=== PATIENT | female | born 1960 | race African-American/Black ===

== ENCOUNTER → 2020-02-20 | Outpatient (CLI) | payer OTHER | LOC: BC 12-17 09:42 → ULTRA 09:57 → BC 11:10 | PROVIDERS: ATTEND Family Medicine | DX: Z12.31 Encounter for screening mammogram for malignant neoplasm of breast (principal); N63.20 Unspecified lump in the left breast, unspecified quadrant ==

== ENCOUNTER → 2020-06-04 | Outpatient (CLI) | payer OTHER | LOC: BC 09:31 | PROVIDERS: ATTEND Family Medicine | DX: R92.2 Inconclusive mammogram (principal) ==

== ENCOUNTER → 2020-11-05 | Outpatient (CLI) | payer OTHER | LOC: ULTRA 12:37 | PROVIDERS: ATTEND Nurse Practitioner | DX: E04.1 Nontoxic single thyroid nodule (principal); E11.9 Type 2 diabetes mellitus without complications ==

== ENCOUNTER → 2021-02-25 | Outpatient (CLI) | payer OTHER | LOC: RAD 09:46 | PROVIDERS: ATTEND Family Medicine | DX: Z12.31 Encounter for screening mammogram for malignant neoplasm of breast (principal) ==